=== PATIENT | male | born 1955 | race Caucasian/White ===

== ENCOUNTER 2018-08-13 12:55 | Emergency (ER) | payer OTHER ==
[2018-08-13] MEDS ORDERED: LIDOCAINE 1%/EPI 30 ML INJ INJ (13:09)
[2018-08-13] MEDS: ACETAMINOPHEN 325 MG TAB PO (13:30)
[2018-08-13] MEDS: DIPHTH/TET/ACEL PERTUSS (ADULT) 0.5 ML VIAL ZFS (13:31)
[2018-08-13] MEDS: LIDOCAINE 1%/EPI (1:100,000) (MDV) 20 ML INJ (13:38)
[2018-08-13] MEDS ORDERED: BACITRACIN 0.9 GM OINT (14:04)
== END 2018-08-13 14:51 | disposition home or self-care (01) ==
LOC: FTE 14:51
DX: S01.81XA Laceration without foreign body of other part of head, initial encounter (principal); W01.198A Fall on same level from slipping, tripping and stumbling with subsequent striking against other object, initial encounter; Y92.9 Unspecified place or not applicable; Z23 Encounter for immunization
CPT/HCPCS: 12014; 90471; 90715; 99283-25

== ENCOUNTER 2018-08-16 17:02 | Emergency (ER) | payer OTHER | END 2018-08-16 18:01 | disposition home or self-care (01) | LOC: FTE 17:02 | DX: Z48.01 Encounter for change or removal of surgical wound dressing (principal); I10 Essential (primary) hypertension | CPT/HCPCS: 99283; Z7502 ==

== ENCOUNTER 2018-08-22 12:47 | Emergency (ER) | payer OTHER | END 2018-08-22 14:52 | disposition home or self-care (01) | LOC: FTE 12:47 | DX: Z48.02 Encounter for removal of sutures (principal) | CPT/HCPCS: 99281; Z7502 ==

== ENCOUNTER 2018-08-29 12:33 | Emergency (ER) | payer OTHER | END 2018-08-29 14:22 | disposition home or self-care (01) | LOC: FTE 12:33 | DX: Z48.02 Encounter for removal of sutures (principal) | CPT/HCPCS: 99282; Z7502 ==